=== PATIENT | female | born 1980 | race Two or more races ===

== ENCOUNTER 2024-02-22 10:12 | Day surgery (SDC) | payer OTHER ==
[~2024-02-22 10:12] MED LIST: IRON DEXTRAN COMPLEX 1,000 MG in SODIUM CHLORIDE 250 ML IVPB ONE
[2024-02-22] MEDS: IRON DEXTRAN COMPLEX 1,000 MG in SODIUM CHLORIDE 250 ML IVPB ONE (10:52)
[2024-02-22 14:56] VITALS: BP 138/76; PULSE 78; RESP 20; TEMP 97.4
== END 2024-02-22 12:55 | disposition home or self-care (01) ==
LOC: JONCCHEMO 10:12 → J7W 10:12 → JONCCHEMO 12:55
PROVIDERS: ATTEND Internal Medicine Hematology & Oncology
PROC: 3E033GC Introduction of Other Therapeutic Substance into Peripheral Vein, Percutaneous Approach (ICD-10-PCS; principal; 2024-02-22)
DX: D50.0 Iron deficiency anemia secondary to blood loss (chronic) (principal)
CPT/HCPCS: 96365; 96366; J1750